=== PATIENT | male | born 1970 | race Caucasian/White ===

== ENCOUNTER 2020-08-20 11:40 | Emergency (ER) | payer OTHER, BC ==
[~2020-08-20] VITALS: Ht 193 cm; Wt 120.2 kg
[2020-08-20] MEDS ORDERED: LOSARTAN-HCTZ1 EAC1 PO (13:05)
== END 2020-08-20 12:48 | disposition short-term general hospital (02) ==
LOC: ED 11:40
DX: S65.111A Laceration of radial artery at wrist and hand level of right arm, initial encounter (principal); Z20.822 Contact with and (suspected) exposure to COVID-19; W45.8XXA Other foreign body or object entering through skin, initial encounter
CPT/HCPCS: 64450; 80053; 82150; 82553; 83605; 83690; 85025; 99284-25; C9803; G0480; U0003

== ENCOUNTER 2020-10-25 23:13 | Emergency (ER) | payer BC ==
[~2020-10-25] VITALS: Ht 193 cm; Wt 120.2 kg
[~2020-10-25 23:13] MED LIST: LOSARTAN-HCTZ1 EAC1 PO
--- NOTE | 2020-10-28 15:48 | EKG ---
[facility] [address] [facility] [place], [place] [address] Signed Normal sinus rhythm ST elevation, consider inferolateral injury or acute infarct ACUTE CO / STEMI Consider right ventricular involvement in acute inferior infarct Abnormal ECG No previous ECGs available Confirmed by ZACHARY KINNEY MD ([id number]) on 10/28/2020 3:48:01 PM Electronically Signed By: ZACHARY KINNEY MD 10/28/20 1548 PATIENT NAME: DEEDEESHANCHEMA Electrocardiogram DATE OF : 68 PHYSICIAN: ZACHARY KINNEY MD REPORT #: [id number] REPORT IS CONFIDENTIAL AND NOT TO BE RELEASED WITHOUT AUTHORIZATION
== END 2020-10-26 | disposition short-term general hospital (02) ==
LOC: ED 23:13
DX: I21.19 ST elevation (STEMI) myocardial infarction involving other coronary artery of inferior wall (principal); I10 Essential (primary) hypertension; Z79.899 Other long term (current) drug therapy
CPT/HCPCS: 71045; 80053; 83735; 84484; 85025; 93005; 93010; 96374; 96375; 99285-25; J1644; J2270; J2405

== ENCOUNTER 2020-11-17 15:17 | Emergency (ER) | payer BC ==
[~2020-11-17] VITALS: Ht 193 cm; Wt 120.2 kg
--- OUTSIDE RECORDS SUMMARY | 2020-11-17 15:24 | XMS ---
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 Ty has no Care Guidelines for this patient. Krish VISIT COUNT (12 MO.) 1 [facility] 3 [facility] T[facility] 4 NOTE: Visits indicate total known visits. ED/C VISIT TRACKING (12 MO.) 11/17/2020 15:17 [facility] [place] TYPE: Emergency COMPLAINT: - CHEST PAIN,SOB 10/25/2020 23:13 [facility] [place] TYPE: Emergency COMPLAINT: - CHEST PAIN DIAGNOSES: - Essential (primary) hypertension - Other fdc (current) drug therapy - ST elevation (STEMI) myocardial infarction involving other coronary artery of inferior wall - Precordial pain 08/20/2020 14:27 [facility] TYPE: Emergency DIAGNOSES: [id number]. R WRIST ARTERIAL BLEED 08/20/2020 11:40 [facility] [place] TYPE: Emergency COMPLAINT: - LACERATION DIAGNOSES: - Other foreign body or object entering through skin, initial encounter - Laceration of radial artery at wrist and hand level of right arm, initial encounter INPATIENT VISIT TRACKING (12 MO.) 10/26/2020 00:36 [facility] Angie COLEMAN TYPE: Intensive Care DIAGNOSES: - ST elevation (STEMI) myocardial infarction of unspecified site [email or web address]
[2020-11-17] MEDS ORDERED: METOPROLOL TART25 MG PO (16:15)
[2020-11-17] MEDS ORDERED: ATORVASTATIN CA80 MG PO (16:15)
[2020-11-17] MEDS ORDERED: ASPIRIN81 MG PO (16:15)
[2020-11-17] MEDS ORDERED: BRILINTA90 MG PO (16:16)
[2020-11-17] MEDS ORDERED: PROTONIX20 MG PO (16:16)
[2020-11-17] MEDS ORDERED: SILDENAFIL20 MG PO (16:16)
[2020-11-17] MEDS ORDERED: FLUTICASONE-SA1 EAC4 INH (16:17)
[2020-11-17] MEDS ORDERED: FLUTICASONE PRO16 GM NAS (16:17)
[2020-11-17] MEDS ORDERED: CLARITIN10 M2 PO (16:17)
[2020-11-17] MEDS ORDERED: NITROGLYCERIN0.4 MG SL (18:05)
--- NOTE | 2020-11-17 22:33 | EKG ---
[facility] [address] [place] [address] Signed Sinus bradycardia Inferior infarct , age undetermined Abnormal ECG When compared with ECG of 25-OCT-2020 23:15, Inferior infarct is now present ST no longer elevated in Inferior leads ST elevation now present in Lateral leads T wave inversion now evident in Inferior leads Nonspecific T wave abnormality, worse in Lateral leads Confirmed by NIKOLAI MCNAMARA MD ([id number]) on 11/17/2020 10:33:16 PM Electronically Signed By: NIKOLAI MCNAMARA MD 11/17/20 2233 PATIENT NAME: CHEMA ROGEL Electrocardiogram DATE OF : [birth year] PHYSICIAN: NIKOLAI MCNAMARA MD REPORT #: [id number] REPORT IS CONFIDENTIAL AND NOT TO BE RELEASED WITHOUT AUTHORIZATION
--- NOTE | 2020-11-19 07:19 | EKG ---
[facility] [address] [facility] [place], [place] [address] Signed Sinus bradycardia with 1st degree AV block Inferior infarct (cited on or before 25-OCT-2020) Abnormal ECG When compared with ECG of 17-NOV-2020 15:23, (Unconfirmed) No significant change was found Confirmed by NIKOLAI MCNAMARA MD ([id number]) on 11/19/2020 7:18:50 AM Electronically Signed By: NIKOLAI MCNAMARA MD 11/19/20 0719 PATIENT NAME: CHEMA ROGEL LATASHA Electrocardiogram DATE OF : [birth year] PHYSICIAN: NIKOLAI MCNAMARA MD REPORT #: [id number] REPORT IS CONFIDENTIAL AND NOT TO BE RELEASED WITHOUT AUTHORIZATION
== END 2020-11-17 18:52 | disposition home or self-care (01) ==
LOC: ED 15:17
DX: R07.2 Precordial pain (principal); I10 Essential (primary) hypertension; Z79.82 Long term (current) use of aspirin; Z79.899 Other long term (current) drug therapy
CPT/HCPCS: 71045; 80053; 83735; 84484; 85025; 93005; 93010; 99285-25; J7040

== ENCOUNTER 2021-08-12 13:48 | Emergency (ER) | payer OTHER, BC ==
[~2021-08-12] VITALS: Ht 193 cm; Wt 128.1 kg
[~2021-08-12 13:48] MED LIST changes: +ASPIRIN81 MG PO; +ATORVASTATIN CA80 MG PO; +BRILINTA90 MG PO; +CLARITIN10 M2 PO; +FLUTICASONE PRO16 GM NAS; +FLUTICASONE-SA1 EAC4 INH; +METOPROLOL TART25 MG PO; +NITROGLYCERIN0.4 MG SL; +PROTONIX20 MG PO; +SILDENAFIL20 MG PO
--- OUTSIDE RECORDS SUMMARY | 2021-08-12 13:56 | XMS ---
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 Care History Medical/Surgical 11/18/2020 [facility] - Patient is currently established with [facility]. If patient is seen in the ED during business hours. Please contact CHWs at [facility]. Care Recommendation: If this patient has had 5 or more Emergency Department visits in the last 12 months.\T\nbsp; Patient will require education on the scope and purpose of the ED as an acute care provider not a Primary Care Provider and should not be utilized for chronic conditions.\T\nbsp; These are guidelines and the provider should exercise clinical judgment when providing care. 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 Patient taking Rx for hypertension. Has follow up with Dr. Grey on 2020. I advised of Walk In Clinic if possible for other non life threatening medical concerns. Patient understood. E.DChristian VISIT COUNT (12 MO.) 1 [facility] [address] [facility] TOTAL 5 NOTE: Visits indicate total known visits. ED/UCC VISIT TRACKING (12 MO.) 08/12/2021 13:49 [facility] [place] TYPE: Emergency COMPLAINT: - L LEG INJURY 11/17/2020 15:17 [facility] [place] TYPE: Emergency COMPLAINT: - CHEST PAIN,SOB DIAGNOSES: - care home (current) use of aspirin - Other chcf (current) drug therapy - Essential (primary) hypertension - Precordial pain 10/25/2020 23:13 [facility] [place] TYPE: Emergency COMPLAINT: - CHEST PAIN DIAGNOSES: - Essential (primary) hypertension - Other chcf (current) drug therapy - ST elevation (STEMI) myocardial infarction involving other coronary artery of inferior wall - Precordial pain 08/20/2020 14:27 [facility] TYPE: Emergency DIAGNOSES: [address]609. R WRIST ARTERIAL BLEED 08/20/2020 11:40 [facility] [place] TYPE: Emergency COMPLAINT: - LACERATION DIAGNOSES: - Other foreign body or object entering through skin, initial encounter - Laceration of radial artery at wrist and hand level of right arm, initial encounter - Contact with and (suspected) exposure to COVID-19 INPATIENT VISIT TRACKING (12 MO.) 10/26/2020 00:36 [facility] Angie COLEMAN TYPE: Intensive Care DIAGNOSES: - ST elevation (STEMI) myocardial infarction of unspecified site [email or web address]
== END 2021-08-12 15:08 | disposition home or self-care (01) ==
LOC: ED 13:48
DX: S76.911A Strain of unspecified muscles, fascia and tendons at thigh level, right thigh, initial encounter (principal); X58.XXXA Exposure to other specified factors, initial encounter; I10 Essential (primary) hypertension; I25.2 Old myocardial infarction; Z79.899 Other long term (current) drug therapy; Z79.82 Long term (current) use of aspirin
CPT/HCPCS: 99283

== ENCOUNTER 2022-05-16 15:18 | Emergency (ER) | payer BC ==
[~2022-05-16] VITALS: Ht 193 cm; Wt 124.7 kg
--- OUTSIDE RECORDS SUMMARY | 2022-05-16 15:20 | XMS ---
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 Care History Medical/Surgical 11/18/2020 [facility] - Patient is currently established with [facility]. If patient is seen in the ED during business hours. Please contact CHWs at [facility]. Care Recommendation: If this patient has had 5 or more Emergency Department visits in the last 12 months.\T\nbsp; Patient will require education on the scope and purpose of the ED as an acute care provider not a Primary Care Provider and should not be utilized for chronic conditions.\T\nbsp; These are guidelines and the provider should exercise clinical judgment when providing care. 11/18/2020 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 Patient taking Rx for hypertension. Has follow up with Dr. Grey on 2020. I advised of Walk In Clinic if possible for other non life threatening medical concerns. Patient understood. E.DChristian VISIT COUNT (12 MO.) 2 [facility] TOTAL 2 NOTE: Visits indicate total known visits. 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
[2022-05-16] MEDS ORDERED: IRBESARTAN-HCT1 EACH PO (16:13)
--- NOTE | 2022-05-16 20:39 | EKG ---
[facility] [address] [facility] [place] [address] Signed Normal sinus rhythm Possible Inferior infarct (cited on or before 17-NOV-2020) Abnormal ECG When compared with ECG of 17-NOV-2020 17:37, T wave inversion less evident in Inferior leads Nonspecific T wave abnormality no longer evident in Anterolateral leads Confirmed by NIKOLAI MCNAMARA MD ([id number]) on 05/16/2022 8:39:27 PM Electronically Signed By: NIKOLAI MCNAMARA MD 05/16/222038 PATIENT NAME: CHEMA ROGEL Electrocardiogram DATE OF : [birth year] PHYSICIAN: NIKOLAI MCNAMARA MD REPORT #: [id number] REPORT IS CONFIDENTIAL AND NOT TO BE RELEASED WITHOUT AUTHORIZATION
--- NOTE | 2022-05-16 20:41 | EKG ---
[facility] [address] [facility] [place], [place] [address] Signed Normal sinus rhythm Inferior infarct (cited on or before 17-NOV-2020) Abnormal ECG When compared with ECG of 16-MAY-2022 15:21, (Unconfirmed) No significant change was found Confirmed by NIKOLAI MCNAMARA MD ([id number]) on 05/16/2022 8:41:02 PM Electronically Signed By: NIKOLAI MCNAMARA MD 05/16/222040 PATIENT NAME: TARASMANJUCHEMA Electrocardiogram DATE OF : [birth year] PHYSICIAN: NIKOLAI MCNAMARA MD REPORT #: [id number] REPORT IS CONFIDENTIAL AND NOT TO BE RELEASED WITHOUT AUTHORIZATION
--- NOTE | 2022-05-17 16:27 | EKG ---
[facility] [address] [facility] [place] [address] Signed Normal sinus rhythm Inferior infarct , age undetermined Abnormal ECG No previous ECGs available Confirmed by NIKOLAI MCNAMARA MD ([id number]) on 05/17/2022 4:26:47 PM Electronically Signed By: NIKOLAI MCNAMARA MD 05/17/22 1627 PATIENT NAME: CHEMA ROGEL Electrocardiogram DATE OF : [birth year] PHYSICIAN: NIKOLAI MCNAMARA MD REPORT #: [id number] REPORT IS CONFIDENTIAL AND NOT TO BE RELEASED WITHOUT AUTHORIZATION
== END 2022-05-16 21:07 | disposition short-term general hospital (02) ==
LOC: ED 15:18
DX: I21.4 Non-ST elevation (NSTEMI) myocardial infarction (principal); I10 Essential (primary) hypertension; E11.9 Type 2 diabetes mellitus without complications; E78.5 Hyperlipidemia, unspecified; Z79.899 Other long term (current) drug therapy; Z79.82 Long term (current) use of aspirin
CPT/HCPCS: 36415; 71045; 80053; 83735; 84484; 85025; 93005; 93010; A9270; J1644; J1650; U0003

== ENCOUNTER 2024-06-02 16:11 | Emergency (ER) | payer BC ==
[~2024-06-02] VITALS: Ht 193 cm; Wt 124.1 kg
[~2024-06-02 16:11] MED LIST changes: +CELEBREX100 MG PO; +CYCLOBENZAPRINE10 MG PO; +HYDROCODON-ACE1 EA10 PO; +IRBESARTAN-HCT1 EACH PO
[2024-06-02] MEDS ORDERED: NITROGLYCERIN 0.4 MG SUBL SL PRN (16:15)
[2024-06-02] MEDS ORDERED: ASPIRIN 81 MG CHEW PO ONE (16:15)
[2024-06-02] MEDS ORDERED: METFORMIN HCL500 M1 PO (16:23)
[2024-06-02] MEDS ORDERED: AMLODIPINE BESYL5 MG PO (16:23)
[2024-06-02] MEDS ORDERED: IRBESARTAN300 MG PO (16:23)
[2024-06-02] MEDS ORDERED: INDAPAMIDE2.5 MG PO (16:23)
[2024-06-02] MEDS ORDERED: TRULICITY3 MG/0.5 M SQ (16:23)
[2024-06-02] MEDS ORDERED: DUPIXENT300 MG/2 M SQ (16:23)
[2024-06-02 16:30] LABS: BASOPHILS 0.9 % (0-2); EOSINOPHILS 9.7 % (0-6); HEMATOCRIT 43.8 % (35.0-50.0); HEMOGLOBIN 16.1 g/dL (12.0-18.0); MCH 30.4 (27-36); MCHC 36.7 g/dl (30-36); MCV 82.8 fl (81-99); MONOCYTES 7.9 % (0-12); NEUTROPHILS 46.5 % (39-80); PLATELET COUNT 125 K/uL (140-440); RDW 14.2 (10.5-15.0)
[2024-06-02 16:42] LABS: INR 1.06 (0.80-1.30); PROTIME 13.2 Sec (11.2-14.2)
[2024-06-02 16:49] LABS: ALBUMIN 4.2 g/dL (3.4-5.0); ALBUMIN/GLOBULIN RATIO 1.2 (1.1-2.4); ANION GAP 9.5 (7-21); BILIRUBIN, TOTAL 1.3 mg/dL (0.2-1.0); BUN/CREATININE RATIO 22.33 (6.0-28.6); CALCIUM 9.2 mg/dL (8.5-10.1); CREATININE, SERUM 1.03 mg/dL (0.70-1.30); MAGNESIUM 1.6 mg/dL (1.8-2.4); POTASSIUM 3.5 mmol/L (3.5-5.1); PROTEIN, TOTAL 7.7 g/dL (6.4-8.2)
[2024-06-02 18:52] VITALS: BP 158/82
--- NOTE | 2024-06-03 20:11 | EKG ---
[facility] [address] [facility] [place] [address] Signed Normal sinus rhythm Inferior infarct (cited on or before 17-NOV-2020) Abnormal ECG When compared with ECG of 04-NOV-2022 01:07, PA interval has decreased Confirmed by Nahun Boudreaux DO ([id number]) on 06/03/2024 8:10:52 PM Electronically Signed By: NAHUN BOUDREAUX DO 06/03/24 2011 PATIENT NAME: JUAN FCHEMA Electrocardiogram DATE OF : [birth year] PHYSICIAN: NAHUN BOUDREAUX DO REPORT #: [id number] REPORT IS CONFIDENTIAL AND NOT TO BE RELEASED WITHOUT AUTHORIZATION
== END 2024-06-02 18:55 | disposition home or self-care (01) ==
LOC: ED 16:11
PROVIDERS: Emergency Medicine
DX: R07.89 Other chest pain (principal); I10 Essential (primary) hypertension; E11.9 Type 2 diabetes mellitus without complications
CPT/HCPCS: 36415; 71045; 80053; 83735; 84484; 85025; 85610; 93005; 93010; 99285-25; A9270